=== PATIENT | female | born 1995 ===

== ENCOUNTER 2018-07-17 07:01 | Outpatient (CLI) | payer BC | END 2018-07-17 07:02 | disposition home or self-care (01) | LOC: BICULT 07:01 | PROVIDERS: ATTEND Internal Medicine | DX: R10.33 Periumbilical pain (principal) | CPT/HCPCS: 76700 ==

== ENCOUNTER 2019-09-16 09:01 | Outpatient (CLI) | payer OTHER | END 2019-09-16 09:02 | disposition home or self-care (01) | LOC: DTY/OP 09:01 | PROVIDERS: ATTEND Internal Medicine | DX: R63.4 Abnormal weight loss (principal) | CPT/HCPCS: 97802 ==